=== PATIENT | female | born 1990 | race African-American/Black ===

== ENCOUNTER 2022-05-18 15:32 | Inpatient (IN) | payer MEDICAID ==
[~2022-05-18] VITALS: Ht 139.7 cm; Wt 55.3 kg
[2022-05-18 20:15] VITALS: BP 118/78
--- NOTE | 2022-05-18 20:15 | NUR ---
ADMITTED A 31-YEAR-OLD FEMALE FROM [facility], ACCOMPANIED BY 3 AMBULATORY PERSONNEL VIA [employer]. PATIENT IS OBTUNDED, NON VERBAL , ON VENT SETTINGS PRESCRIBED. NO SOB/DISTRESS NOTED. ON TELE MONITOR SHOWING ST WITH A HR OF 110'S. IV ACCESS ON LT WRIST #24, IO ON RT AND LT LEG ON SL. SKIN ASSESSMENT DONE, SKIN IS INTACT. PATIENT HAS NO BELONGINGS. ALL SAFETY MEASURES IMPLEMENTED, HOB ELEVATED. WILL CONTINUE TO MONITOR AND WILL CONTINUE PLAN OF CARE.
[2022-05-18] MEDS ORDERED: ACETAMINOPHEN 650 MG/20.3 ML UDC NG PRN (22:00)
[2022-05-18] MEDS ORDERED: LORAZEPAM INJ 2 MG/ML VIAL IVP PRN (22:00)
[2022-05-18] MEDS ORDERED: ONDANSETRON HCL/PF 4 MG/2 ML VIAL IVP PRN (22:00)
--- NOTE | 2022-05-18 22:10 | NUR ---
LAB AT BEDSIDE
--- NOTE | 2022-05-18 22:20 | NUR ---
MRSA SWAB COLLECTED AND SENT TO LAB.
--- NOTE | 2022-05-18 22:42 | NUR ---
LAB UNABLE TO COLLECT BLOOD. MIDLINE INSERTION REQUESTED.
[2022-05-19] VITALS: BP 118/78
[2022-05-19] MEDS ORDERED: ONDANSETRON HCL 4 MG/5 ML SOLUTION GT PRN
[2022-05-19] MEDS ORDERED: ACETAMINOPHEN 325 MG TABLET MC PRN
[2022-05-19] MEDS ORDERED: LORAZEPAM 1 MG TABLET PO PRN
[2022-05-19] MEDS ORDERED: MAGNESIUM HYDROXIDE 30 ML UDC GT PRN
[2022-05-19] MEDS ORDERED: VANCOMYCIN 1 GM in IV D5W 250ml IV ONE (02:00)
[2022-05-19] MEDS ORDERED: CEFEPIME 1 GM in IV D5W 50 ML IV SCH ×2 (02:00→22:00)
[2022-05-19] MEDS ORDERED: DEXT15DR6 OP (02:31)
[2022-05-19] MEDS ORDERED: METO1TAB25 PO (02:31)
[2022-05-19] MEDS ORDERED: DOCU-141 GT (02:31)
[2022-05-19] MEDS ORDERED: MAGN24002 PO (02:31)
[2022-05-19] MEDS ORDERED: MULT-213 GT (02:31)
[2022-05-19] MEDS ORDERED: PHEN100C4 GT (02:31)
[2022-05-19] MEDS ORDERED: POTA20TA83 PO (02:31)
[2022-05-19] MEDS ORDERED: LORA-259 PO (02:31)
[2022-05-19] MEDS ORDERED: PHEN20EL5 GT (02:31)
[2022-05-19] MEDS ORDERED: LEVE1000 GT (02:31)
[2022-05-19] MEDS ORDERED: IPRA3AMP23 IH (02:31)
[2022-05-19] MEDS ORDERED: CALC-1029 PO (02:31)
[2022-05-19] MEDS ORDERED: ACET650S26 GT (02:31)
[2022-05-19] MEDS ORDERED: ONDA4TAB5 GT (02:31)
[2022-05-19] MEDS ORDERED: FAMO-131 GT (02:31)
[2022-05-19] MEDS: IV NS 0.9% 1,000 ML IV PRN ×3 (02:57→16:28)
[2022-05-19] MEDS ORDERED: VANCOMYCIN 1 GM VIAL ONE (02:59)
[2022-05-19] MEDS ORDERED: IV NS 0.9% 500 ML IV ONE (03:00)
[2022-05-19] MEDS ORDERED: CEFEPIME 1 GM VIAL ONE (03:00)
[2022-05-19] MEDS ORDERED: LORAZEPAM 1 MG TABLET PO SCH (03:00)
[2022-05-19] MEDS ORDERED: Medication Not On Formulary EA (Ipratropium/Albuterol Sulfate (Duoneb 2.5-0.5 Mg/3 Ml So IH PRN (03:00)
[2022-05-19] MEDS ORDERED: ALBUTEROL FS 2.5 MG/0.5 ML VIAL.NEB NEB PRN (03:30)
[2022-05-19] MEDS ORDERED: IPRATROPIUM NEB FS 0.5 MG/2.5 ML AMPUL.NEB IH PRN (03:30)
--- NOTE | 2022-05-19 03:45 | NUR ---
IV access inserted on rt hand g#22. patent, intact and flushing well.
[2022-05-19 04:00] VITALS: BP 118/73
--- NOTE | 2022-05-19 04:06 | NUR ---
Vancomycin 1 gm stock med administered via rt hand IV access.
[2022-05-19] MEDS ORDERED: LEVETIRACETAM (500MG) 500 MG/5 ML VIAL IV ONE (04:14)
[2022-05-19] MEDS: LEVETIRACETAM (500MG) 1,000 MG in IV NS 0.9% 100 ML IV SCH ×2 (04:15→15:53)
[2022-05-19] MEDS: PHENYTOIN EXTENDED RELEASE 100 MG CAPSULE PO SCH ×3 (04:16→21:15)
[2022-05-19] MEDS ORDERED: POLYVINYL ALCOHOL 15 ML BOTTLE EACHEYE SCH (05:00)
[2022-05-19] MEDS ORDERED: PHENYTOIN SUSP UDC 100 MG/4 ML UDC GT SCH (05:00)
[2022-05-19] MEDS ORDERED: PHENOBARBITAL 20 MG/5 ML UDC PO SCH (05:00)
[2022-05-19] MEDS ORDERED: PHENOBARBITAL 30 MG TABLET ONE (05:27)
--- NOTE | 2022-05-19 06:41 | NUR ---
PATIENT IS OBTUNDED, NON VERBAL , ON VENT SETTINGS PRESCRIBED. NO SOB/DISTRESS NOTED. ON TELE MONITOR SHOWING ST WITH A HR OF 107. IV ACCESS ON RT HAND G#22, LT WRIST #24, IO ON RT AND LT LEG ON SL. ALL SAFETY MEASURES MAINTAINED. HOB ELEVATED. WILL ENDORSE TO NEXT NURSE ON DUTY FOR CONTINUITY OF CARE.
--- NOTE | 2022-05-19 07:09 | NUR ---
Unable to administer Phenobarbital 20mg, dose not available in the unit and in other units. Informed pharmacy, they will bring the ordered dose when available. Will endorse to morning shift nurse.
--- NOTE | 2022-05-19 07:12 | NUR ---
SEAFOOD SPECIALIST OPENING NOTES: RECEIVED PATIENT IN BED, OBTUNDED, NON VERBAL. ON MECHANICAL VENT OF SHILEY # 4 WITH VENT SETTINGS FOLLOWS: AC 16, TV 400, FIO2 30% AND PEEP 5 WITH CONTINUOUS OXYGEN SATURATION MONITORING OF 100%. NO RESPIRATORY DISTRESS NOTED. ON ST PER TELE MONITOR SHOWING A HR OF 103. IV ACCESS ON RT HAND G#22, LT WRIST #24, IO ON RT AND LT LEG ON SL. ALVARADO CATH IN PLACE. ALL SAFETY MEASURES IN PLACE BED LOCKED AND IN LOWEST POSITION WITH BED ALARM ON. HOB KEPT ELEVATED. WILL CONTINUE TO MONITOR PATIENT THROUGHOUT SHIFT.
[2022-05-19 08:00] VITALS: BP 121/84
[2022-05-19] MEDS ORDERED: MAGN400O6 GT (08:43)
[2022-05-19] MEDS ORDERED: POTA20PA3 GT (08:43)
[2022-05-19] MEDS ORDERED: BISA10SU11 RC (08:43)
[2022-05-19] MEDS ORDERED: LORA2VIA11 IM (08:43)
[2022-05-19] MEDS ORDERED: CALC1TAB30 GT (08:43)
[2022-05-19] MEDS ORDERED: METO25TA20 GT (08:43)
[2022-05-19] MEDS ORDERED: [UNRECOGNIZED DRUG - CODE] GT (08:43)
[2022-05-19] MEDS ORDERED: POLY15DR40 EACHEYE (08:43)
[2022-05-19] MEDS ORDERED: PANTOPRAZOLE 40 MG VIAL IV SCH (09:00)
[2022-05-19] MEDS ORDERED: LORAZEPAM INJ 2 MG/ML VIAL IVP PRN (09:00)
[2022-05-19] MEDS ORDERED: METOPROLOL TARTRATE 50 MG TABLET GT SCH (09:00)
[2022-05-19] MEDS ORDERED: MULTIPLE VIT (LYCOPENE/FA/MV,CA,IRON,MIN/LUT)1 TAB GT SCH (09:00)
[2022-05-19] MEDS ORDERED: LEVETIRACETAM SOL (5 ML) 100 MG/ML UDC GT SCH (09:00)
[2022-05-19] MEDS ORDERED: CALCIUM CARBONATE 500 MG TAB.CHEW GT SCH (09:00)
[2022-05-19] MEDS ORDERED: DOCUSATE SODIUM LIQ 100 MG/10 ML UDC GT SCH (09:00)
[2022-05-19] MEDS ORDERED: PHENOBARBITAL 60 MG/15 ML UDC GT SCH (09:00)
[2022-05-19] MEDS ORDERED: POTASSIUM CHLORIDE 20 MEQ TAB.PRT.SR PO SCH (09:00)
--- NOTE | 2022-05-19 09:00 | NUR ---
MIDLINE NURSE CAME TO INSERT IV ON PATIENT'S LEFT UPPER ARM # 18.
--- NOTE | 2022-05-19 09:20 | NUR ---
DOCTOR CAME TO REMOVE IO ON BILATERAL LEGS, MINIMAL BLEEDING NOTED
[2022-05-19] MEDS: POTASSIUM CHLORIDE 20 MEQ TAB.PRT.SR PO SCH (09:36)
[2022-05-19] MEDS: DOCUSATE SODIUM 100 MG CAPSULE PO SCH ×2 (09:36→21:15)
[2022-05-19] MEDS: MULTIVIT W/MINERALS 1 TAB TABLET PO SCH (09:37)
--- NOTE | 2022-05-19 10:28 | NUR ---
WOUND CARE CONSULT: PT PRESENTS WITH SOME DISCOLORATION OF SKIN ON FEET, PRESENT ON ADMISSION. RECOMMENDATIONS MADE FOR SKIN PROTECTION. DISCUSSED WITH NURSING STAFF. PT IS INCONTINENT OF STOOL. ALVARADO CATH NOTED. MD IN AGREEMENT WITH PLAN OF CARE.
[2022-05-19] MEDS: Z GUARD REMEDY 4 OZ OINT TP SCH (10:30)
[2022-05-19] MEDS ORDERED: Z GUARD REMEDY 4 OZ OINT TP PRN (10:30)
[2022-05-19 12:00] VITALS: BP 111/67
[2022-05-19] MEDS ORDERED: PHENOBARBITAL 60 MG/15 ML UDC PO SCH (13:00)
[2022-05-19] MEDS ORDERED: PHENOBARBITAL 60 MG TABLET PO SCH (14:30)
[2022-05-19] MEDS: PHENOBARBITAL 30 MG TABLET PO SCH (14:55)
[2022-05-19] MEDS ORDERED: JEVITY 1.2 CAL 1,000 ML BOTTLE GT PRN (15:00)
[2022-05-19 15:25] LABS: BASOPHILS % (AUTO) 0.2 % (0.0-2.0); EOSINOPHILS % (AUTO) 0.2 % (0.0-6.0); HEMATOCRIT 33 % (33-45); HEMOGLOBIN 10.3 g/dL (11.5-14.8); LYMPHOCYTES # (AUTO) 0.8 K/uL (0.8-4.8); LYMPHOCYTES % (AUTO) 15.2 % (20.0-44.0); MEAN CORPUSCULAR HGB CONC 31 g/dl (31.0-36.0); MEAN CORPUSCULAR VOLUME 83 fL (82-100); MONOCYTES # (AUTO) 0.7 K/uL (0.1-1.30); MONOCYTES % (AUTO) 13.4 % (2.0-12.0); PLATELET COUNT (AUTO) 195 K/uL (150-450); RED BLOOD CELL COUNT(AUTO) 3.98 MIL/uL (4.0-5.2); WHITE BLOOD COUNT (AUTO) 5.6 K/uL (4.3-11.0)
[2022-05-19 15:54] LABS: ALBUMIN 2.4 g/dL (3.4-5.0); BILIRUBIN,TOTAL 0.3 mg/dL (0.2-1.0); CALCIUM, SERUM 7.9 mg/dL (8.5-10.1); CREATININE 0.4 mg/dL (0.6-1.3); MAGNESIUM 2.1 mg/dL (1.8-2.4); PHOSPHORUS 2.7 mg/dL (2.5-4.9); POTASSIUM 3.3 mmol/L (3.5-5.1); TOTAL PROTEIN, SERUM 7.8 g/dL (6.4-8.2)
[2022-05-19 16:00] VITALS: BP 121/74
[2022-05-19 16:26] LABS: PHENYTOIN (DILANTIN) 4.2 ug/ml (10.0-20.0)
[2022-05-19] MEDS ORDERED: PHENYTOIN SODIUM IV 100 MG/2ML VIAL IV ONE (17:30)
[2022-05-19] MEDS ORDERED: phenytoin SODIUM IV 500 MG in IV NS 0.9% 50 ML IV ONE (18:00)
--- NOTE | 2022-05-19 18:26 | NUR ---
SPOKE WITH MIGUE AT THE PHARMACY AND SAID IT'S OK TO GIVE VANCO ORDERED.
[2022-05-19] MEDS: VANCOMYCIN 0.75 GM in IV D5W 250 ML IV SCH (18:28)
--- NOTE | 2022-05-19 18:55 | NUR ---
WORLDWIDE CHIEF CREATIVE OFFICER CLOSING NOTES: PATIENT IN BED, OBTUNDED, NON VERBAL. ON MECHANICAL VENT WITH VENT SETTINGS ORDERED. ON CONTINUOUS OXYGEN SATURATION MONITORING OF 100%. NO RESPIRATORY DISTRESS NOTED THROUGHOUT SHIFT. NO SEIZURE EPISODE NOTED THE ENTIRE SHIFT. ON ST PER TELE MONITOR SHOWING A HR OF 105. IV ACCESS ON LEFT UPPER ARM MIDLINE IS IN PLACE, INTACT, FLUSHES WELL WITH NO S/S INFILTRATION NOTED. ALL SAFETY MEASURES IMPLEMENTED. BED LOCKED AND IN LOWEST POSITION WITH BED ALARM ON. HOB KEPT ELEVATED. WILL ENDORSE TO INCOMING NURSE FOR CONTINUITY OF CARE.
--- NOTE | 2022-05-19 19:30 | NUR ---
PT RECEIVED AWAKE. OBTUNDED, NON VERBAL. ON MECHANICAL VENT WITH VENT SETTINGS ORDERED. NO RESPIRATORY DISTRESS NOTED. ON TELE MONITOR SHOWING ST WITH A HR OF 105. IV ACCESS ON LEFT UPPER ARM MIDLINE. ALL SAFETY MEASURES IN PLACE. WILL CONTINUE PLAN OF CARE.
[2022-05-19 20:00] VITALS: BP 113/66
[2022-05-19] MEDS: CEFEPIME 2 GM in IV D5W 100 ML IV SCH (20:07)
[2022-05-19] MEDS ORDERED: FAMOTIDINE (20 MG) 20 MG TABLET GT SCH (22:00)
[2022-05-19] MEDS ORDERED: FAMOTIDINE (20 MG) 20 MG TABLET PO SCH (22:00)
[2022-05-20] VITALS (7 sets, daily range): BP systolic 102–128; BP diastolic 65–80
[2022-05-20] MEDS: PHENOBARBITAL 30 MG TABLET PO SCH ×2 (02:02→14:48)
[2022-05-20] MEDS: LEVETIRACETAM (500MG) 1,000 MG in IV NS 0.9% 100 ML IV SCH (03:09)
--- NOTE | 2022-05-20 03:47 | NUR ---
PT HAD EPISODE OF MILD SEIZURE. ATIVAN 2MG IV PRN GIVEN NEEDED AND ORDERED. CHARGE NURSE INFORMED.
[2022-05-20] MEDS: CEFEPIME 2 GM in IV D5W 100 ML IV SCH ×3 (05:38→21:36)
[2022-05-20] MEDS: VANCOMYCIN 0.75 GM in IV D5W 250 ML IV SCH ×2 (06:19→18:31)
[2022-05-20] MEDS: IV NS 0.9% 1,000 ML IV PRN ×3 (06:26→22:25)
--- NOTE | 2022-05-20 07:30 | NUR ---
RN OPENING NOTE PT OBSERVED IN BED WITH HOB >35 DEGREES. PT IS ON MECHANICAL VENT WITH ALL PRESCRIBED SETTINGS TOLERATING WELL O2 SAT 100% NO SIGNS OF DISTRESS. PT IS OBTUNDED. TF @ 50ML/HR IV ACCESS L UA ML 18g INFUSING WITH NS @100ML/HR. BED IS LOCKED IN LOWEST POSITION ALL HOSPITAL SAFETY MEASURES ARE IN PLACE WILL CONTINUE TO MONITOR THIS SHIFT.
--- NOTE | 2022-05-20 08:10 | NUR ---
PT AWAKE. OBTUNDED, NON VERBAL. ON MECHANICAL VENT WITH VENT SETTINGS ORDERED. NO RESPIRATORY DISTRESS NOTED. ON TELE MONITOR SHOWING ST WITH A HR OF 103-110. IV ACCESS ON LEFT UPPER ARM MIDLINE INFUSING 0.9 NS AT 100ML/HR. ALL SAFETY MEASURES MAINTAINED. WILL ENDORSE TO NEXT SHIFT NURSE FOR CONTINUITY OF CARE.
[2022-05-20] MEDS ORDERED: PANTOPRAZOLE 40 MG/PACK PACK NG SCH (09:00)
[2022-05-20] MEDS: Z GUARD REMEDY 4 OZ OINT TP SCH (09:00)
[2022-05-20] MEDS: DOCUSATE SODIUM 100 MG CAPSULE PO SCH ×2 (10:36→21:36)
[2022-05-20] MEDS: POTASSIUM CHLORIDE 20 MEQ TAB.PRT.SR PO SCH (10:36)
[2022-05-20] MEDS: PHENYTOIN EXTENDED RELEASE 100 MG CAPSULE PO SCH ×2 (10:36→21:36)
[2022-05-20] MEDS: MULTIVIT W/MINERALS 1 TAB TABLET PO SCH (10:38)
--- NOTE | 2022-05-20 12:20 | NUR ---
REPORT GIVEN TO [place] FOREMAN. PT STABLE AT THIS TIME.
[2022-05-20 16:27] LABS: CALCIUM, SERUM 8.1 mg/dL (8.5-10.1); CREATININE 0.5 mg/dL (0.6-1.3); POTASSIUM 3.2 mmol/L (3.5-5.1)
--- NOTE | 2022-05-20 19:00 | NUR ---
NURSING INFORMATICS SPECIALIST CLOSING NOTE: OBTUNDED. TRACH AND VENT WORKING AT PRESCRIBED SETTINGS. LEFT UPPER ARM MID LINE PATENT WITH IVF ORDERED. NO S/S OF COMPLICATIONS. LEFT HAND ARTERIAL LINE WITH NO S/S OF COMPLICATIONS. ANNOUNCER SINUS TACHY 109. GT IN PLACE PATENT NO RESIDUAL. TOLERATED GT FORMULA WELL. ASPIRATION PRECAUTIONS MAINTAINED. ALVARADO CATHETER IN PLACE. MENSTRUAL CYCLE MINIMAL BLOOD NOTED. KEPT CLEAN AND COMFORTABLE. MODERATE ORAL CLEAR SECRETIONS, AND TRACH SECRETIONS SUCTIONED NEEDED. KEPT CLEAN AND DRY. TURNED AND REPOSITIONED. HOB ELEVATED. BILATERAL HALF SIDE RAILS UP X2. BED IN LOW POSITION, LOCKED, EXIT ALARM ON. CALL LIGHT IN REACH. KEPT CLEAN AND COMFORTABLE.
--- NOTE | 2022-05-20 19:30 | NUR ---
RN Opening Notes Received pt in bed with eyes open. Obtunded and nonverbal. On mechanical vent and tolerating well. No SOB noted. No s/sx of respiratory distress noted. IV Access in ISABEL midline #18G running NS @ 100 mL/hr. G-tube in place with Jevity @ 50 ml/hr. Safety precautions in place: bed in lowest, locked position, siderails upX2, and brakes on. Table and call light within reach. All needs met at this time.
[2022-05-20] MEDS ORDERED: LEVETIRACETAM (500MG) 1,000 MG in IV NS 0.9% 100 ML IV SCH ×4 (20:00)
[2022-05-20] MEDS: FAMOTIDINE (20 MG) 20 MG TABLET GT SCH (21:36)
[2022-05-21] VITALS: BP 118/70
[2022-05-21] MEDS: PHENOBARBITAL 30 MG TABLET GT SCH ×2 (01:43→14:15)
[2022-05-21 04:00] VITALS: BP_SYST 105; BP_DIAS 50; BP_DIAS 52
[2022-05-21] MEDS: CEFEPIME 2 GM in IV D5W 100 ML IV SCH ×3 (05:22→20:34)
[2022-05-21] MEDS: VANCOMYCIN 0.75 GM in IV D5W 250 ML IV SCH ×3 (06:25→22:15)
--- NOTE | 2022-05-21 06:44 | NUR ---
RN Closing Notes Pt in bed with eyes open. Obtunded and nonverbal. On mechanical vent and tolerating well. No SOB noted. No s/sx of respiratory distress noted. IV Access in ISABEL midline #18G running NS @ 100 mL/hr. G-tube in place with Jevity @ 50 ml/hr. All orders carried out. All needs met. Pt kept clean and dry. Suctioned patient throughout night. Safety precautions in place: bed in lowest, locked position, siderails upX2, and brakes on. Table and call light within reach. Will endorse to oncoming shift for ROLANDO.
--- NOTE | 2022-05-21 07:40 | NUR ---
telephone triage nurse Opening Notes received pt in bed with eyes open. obtunded and nonverbal. On mechanical vent and tolerating well. No SOB noted. No s/sx of respiratory distress noted. IV Access in ISABEL midline #18G running NS @ 100 mL/hr. G-tube in place with Jevity @ 50 ml/hr.no residual volume noted. moreno cathether in place. yellow color draining to gravity. all Safety precautions in place: bed in lowest, locked position, siderails upX2, and brakes on. bedside Table, bed alarm, call light within reach.
[2022-05-21 08:00] VITALS: BP 130/77
[2022-05-21 08:27] LABS: BASOPHILS % (AUTO) 0.3 % (0.0-2.0); EOSINOPHILS % (AUTO) 1.7 % (0.0-6.0); HEMATOCRIT 31 % (33-45); HEMOGLOBIN 9.9 g/dL (11.5-14.8); LYMPHOCYTES # (AUTO) 0.9 K/uL (0.8-4.8); LYMPHOCYTES % (AUTO) 16.8 % (20.0-44.0); MEAN CORPUSCULAR HGB CONC 32 g/dl (31.0-36.0); MEAN CORPUSCULAR VOLUME 84 fL (82-100); MONOCYTES # (AUTO) 0.7 K/uL (0.1-1.30); MONOCYTES % (AUTO) 13.1 % (2.0-12.0); NEUTROPHILS # (AUTO) 3.7 K/uL (1.8-8.9); NEUTROPHILS % (AUTO) 68.1 % (43.0-81.0); PLATELET COUNT (AUTO) 83 K/uL (150-450); RED BLOOD CELL COUNT(AUTO) 3.74 MIL/uL (4.0-5.2); WHITE BLOOD COUNT (AUTO) 5.5 K/uL (4.3-11.0)
[2022-05-21] MEDS ORDERED: POTASSIUM CHLORIDE 20 MEQ POWDER PACKET GT SCH (09:00)
[2022-05-21 09:07] LABS: CALCIUM, SERUM 7.6 mg/dL (8.5-10.1); CREATININE 0.3 mg/dL (0.6-1.3); MAGNESIUM 1.9 mg/dL (1.8-2.4); PHOSPHORUS 2.8 mg/dL (2.5-4.9); POTASSIUM 3.5 mmol/L (3.5-5.1)
--- NOTE | 2022-05-21 09:25 | NUR ---
RN, please call Radiology when your patient is ready for CT Chest exam. We've been trying to do this for a few days now. please call when ready.
[2022-05-21 10:06] LABS: BAND % (MANUAL) 1 % (0.0-5.0); EOSINOPHILS % (MANUAL) 1 % (0-4); LYMPHOCYTES % (MANUAL) 26 % (16-48); MONOCYTES % (MANUAL) 10 % (0-11.0); NEUTROPHILS % (MANUAL) 62 (42-76)
[2022-05-21] MEDS: Z GUARD REMEDY 4 OZ OINT TP SCH (11:14)
[2022-05-21] MEDS: PANTOPRAZOLE 40 MG/PACK PACK GT SCH (11:31)
[2022-05-21] MEDS: MULTIVIT W/MINERALS 1 TAB TABLET GT SCH (11:31)
[2022-05-21] MEDS: DOCUSATE SODIUM LIQ 100 MG/10 ML UDC GT SCH ×2 (11:31→20:31)
[2022-05-21] MEDS: LEVETIRACETAM SOL (5 ML) 100 MG/ML UDC GT SCH ×2 (11:31→20:32)
[2022-05-21 12:00] VITALS: BP 127/84
[2022-05-21] MEDS ORDERED: LORAZEPAM INJ 2 MG/ML VIAL IV PRN (14:30)
[2022-05-21] MEDS ORDERED: PHENYTOIN SODIUM IV 100 MG/2ML VIAL IV ONE (15:00)
[2022-05-21 16:00] VITALS: BP 133/87
[2022-05-21] MEDS: IV NS 0.9% 1,000 ML IV PRN (18:14)
--- NOTE | 2022-05-21 19:46 | NUR ---
teletype adjuster closing note pt awake, obtunded and nonverbal. pt on mechanical vent and tolerating well. no signs of pain or discomfort at this time.pt iv access on left upper arm midline. iv intact, patent and flushing well. pt has gtube. no residual volume noted. moreno cathether in place. yellow color draining to gravity. all safety measures in place. call light within reach.bed locked at lowest position.pt on seizure precautions. side rails up x2. bed alarm on. endorsed to night time babysitter rn.
[2022-05-21 20:00] VITALS: BP 111/75
[2022-05-21] MEDS: PHENYTOIN SUSP UDC 100 MG/4 ML UDC GT SCH (20:32)
[2022-05-21] MEDS: FAMOTIDINE (20 MG) 20 MG TABLET GT SCH (22:15)
[2022-05-22] VITALS: BP 113/65
--- NOTE | 2022-05-22 02:00 | NUR ---
feeding off as ordered to be restarted at 06:00AM
[2022-05-22] MEDS: PHENOBARBITAL 30 MG TABLET GT SCH ×2 (02:24→14:25)
--- NOTE | 2022-05-22 03:14 | NUR ---
noted on the pixis 05/21 at 1900 it shows to give the Phenobarbital 60 Mg at 1999, ordered q 12 hours last dose 1400 05/21 called the Pharmacy and made them aware that the EMR on the computer states 0230 but the pixis shows 1999 informed him I will take the med out now because if I wait until 02:30 the pixis won't despense the medicine needed he said "okay" and that on his computer it show to be given 0:230 which is correct medication Phenobarbital given at 02:30 05/22.
[2022-05-22 04:00] VITALS: BP 100/66
[2022-05-22] MEDS: CEFEPIME 2 GM in IV D5W 100 ML IV SCH ×2 (04:34→12:33)
[2022-05-22] MEDS: IV NS 0.9% 1,000 ML IV PRN (05:41)
--- NOTE | 2022-05-22 06:00 | NUR ---
closing notes: eyes open not focusing asp this 12 hours orally suctioned freq d/t foam in the mouth max assist to be turned and repositioned and cleaned mid line left upper rm unable to draw blood VANCO TROUGH to be done prior this 0600 am dose pending feeding off at 2 AM and restarted 6AM GT feeding 75 ml hr and tolerating no residuals no seizure activity this 12 hours
--- NOTE | 2022-05-22 06:44 | NUR ---
Vancomyyson due at 06:00 AM not given as yet waiting for the 05:00 VANCOMYSON trough level done this AM will give report to the on coming shift and make them aware
--- NOTE | 2022-05-22 07:29 | NUR ---
telecommunications technician Opening Notes received pt in bed with eyes open. obtunded and nonverbal. On mechanical vent and tolerating well. No SOB noted. No s/sx of respiratory distress noted. IV Access in ISABEL midline #18G running NS @ 100 mL/hr. G-tube in place with Jevity @ 50 ml/hr.no residual volume noted. moreno cathether in place. yellow color draining to gravity. all Safety precautions in place: bed in lowest, locked position, siderails upX2, and brakes on. bedside Table, bed alarm on, call light within reach.
[2022-05-22 08:00] VITALS: BP 100/66
[2022-05-22] MEDS ORDERED: POTASSIUM CHLORIDE 20 MEQ POWDER PACKET GT SCH (09:00)
[2022-05-22] MEDS: PANTOPRAZOLE 40 MG/PACK PACK GT SCH (09:33)
[2022-05-22] MEDS: DOCUSATE SODIUM LIQ 100 MG/10 ML UDC GT SCH (09:33)
[2022-05-22] MEDS: MULTIVIT W/MINERALS 1 TAB TABLET GT SCH (09:33)
[2022-05-22] MEDS: LEVETIRACETAM SOL (5 ML) 100 MG/ML UDC GT SCH (09:33)
[2022-05-22] MEDS: Z GUARD REMEDY 4 OZ OINT TP SCH (09:33)
[2022-05-22 12:00] VITALS: BP 114/73
--- NOTE | 2022-05-22 12:11 | NUR ---
RN note notified roberto redmond that pt is on dilantin suspension 200 mg/8ml and dilantin phenyotin extended release 100 mg 1 capsule and if the capsule can be switched to suspension form Addendum: 05/22/22 at 1350 by LIZZIE OSPINA RN roberto said okay for it to be changed to suspension form. pharmacy aware
[2022-05-22] MEDS: PHENYTOIN SUSP UDC 100 MG/4 ML UDC GT SCH (12:35)
[2022-05-22] MEDS ORDERED: PHENYTOIN EXTENDED RELEASE 100 MG CAPSULE PO SCH (13:00)
[2022-05-22] MEDS ORDERED: PHENYTOIN SUSP UDC 100 MG/4 ML UDC GT SCH (14:00)
[2022-05-22 15:06] LABS: BASOPHILS % (AUTO) 0.6 % (0.0-2.0); EOSINOPHILS % (AUTO) 2.3 % (0.0-6.0); HEMATOCRIT 32 % (33-45); HEMOGLOBIN 9.9 g/dL (11.5-14.8); LYMPHOCYTES % (AUTO) 19.5 % (20.0-44.0); MEAN CORPUSCULAR HGB CONC 31 g/dl (31.0-36.0); MEAN CORPUSCULAR VOLUME 83 fL (82-100); MONOCYTES # (AUTO) 0.8 K/uL (0.1-1.30); MONOCYTES % (AUTO) 15.4 % (2.0-12.0); NEUTROPHILS # (AUTO) 3.3 K/uL (1.8-8.9); NEUTROPHILS % (AUTO) 62.2 % (43.0-81.0); PLATELET COUNT (AUTO) 200 K/uL (150-450); RED BLOOD CELL COUNT(AUTO) 3.83 MIL/uL (4.0-5.2); WHITE BLOOD COUNT (AUTO) 5.2 K/uL (4.3-11.0)
--- NOTE | 2022-05-22 15:20 | NUR ---
rn note gave report to Wilton High RN at [facility].
--- NOTE | 2022-05-22 15:25 | NUR ---
rn note Wilton web content & social media manager asked to keep in midline due to pt being hard stick and keep moreno cathether.
[2022-05-22 15:27] LABS: CALCIUM, SERUM 8.1 mg/dL (8.5-10.1); CREATININE 0.4 mg/dL (0.6-1.3); PHOSPHORUS 2.9 mg/dL (2.5-4.9); POTASSIUM 4.2 mmol/L (3.5-5.1)
[2022-05-22] MEDS ORDERED: PHEN125O9 GT ×2 (15:53)
[2022-05-22] MEDS ORDERED: CEFE2PIG2 IV (15:53)
[2022-05-22] MEDS ORDERED: PHEN30TA40 GT (15:53)
[2022-05-22 16:00] VITALS: BP 110/60
[2022-05-22 16:30] LABS: EOSINOPHILS % (MANUAL) 2 % (0-4); LYMPHOCYTES % (MANUAL) 24 % (16-48); MONOCYTES % (MANUAL) 6 % (0-11.0); NEUTROPHILS % (MANUAL) 68 (42-76)
--- NOTE | 2022-05-22 19:05 | NUR ---
BULB FILLER OPENING NOTE RECEIVED PT IN BED, OBTUNDED, ON MV, TOLERATING WELL. NO SOB/DISTRESS NOTED. IV ACCESS ON ISABEL ML #18G RUNNING NS @ 100 mL/hr. GTF RUNNING JEVITY 1.2 @ 50 ML/HR. F/C IN PLACE, INTACT AND PATENT, DRAINING CLEAR YELLOW URINE. SAFETY MEASURES IN PLACE: SIDE RAILS UP X3, BED LOCKED AND IN LOWEST POSITION.
--- NOTE | 2022-05-22 19:46 | NUR ---
television announcer closing Notes pt in bed with eyes open. obtunded and nonverbal. On mechanical vent and tolerating well. No SOB noted. No s/sx of respiratory distress noted. IV Access in ISABEL midline #18G running NS @ 100 mL/hr. G-tube in place with Jevity @ 50 ml/hr.no residual volume noted. moreno cathether in place. yellow color draining to gravity. all Safety precautions in place: bed in lowest, locked position, siderails upX2, and brakes on. bedside Table, bed alarm on, call light within reach. endorsed to operational meteorologist rn for contuity of care
--- NOTE | 2022-05-22 20:25 | NUR ---
DISCHARGE NOTES PATIENT PICKED UP BY AMBULANCE TO BE TRANSPORTED TO ALL [facility]. REPORT AND DISCHARGE PACKET GIVEN. PT IN BED, OBTUNDED, ON MV, NO SOB/DISTRESS NOTED. IV ACCESS ON ISABEL ML #18G. G-TUBE IN PLACE, FLUSHES WELL. F/C IN PLACE, INTACT AND PATENT. SAFETY MEASURES MAINTAINED.
== END 2022-05-22 21:01 | DRG 720 ==
LOC: TELE1 20:12
PROVIDERS: ADMIT Registered Nurse; ATTEND Nurse Practitioner Acute Care
PROC: 5A1945Z Respiratory Ventilation, 24-96 Consecutive Hours (ICD-10-PCS; principal; 2022-05-18)
PROC: 05HC33Z Insertion of Infusion Device into Left Basilic Vein, Percutaneous Approach (ICD-10-PCS; 2022-05-19)
DX: A41.9 Sepsis, unspecified organism (principal); J69.0 Pneumonitis due to inhalation of food and vomit; G93.49 Other encephalopathy; J15.6 Pneumonia due to other Gram-negative bacteria; J90 Pleural effusion, not elsewhere classified; Z99.11 Dependence on respirator [ventilator] status; Z93.0 Tracheostomy status; J96.10 Chronic respiratory failure, unspecified whether with hypoxia or hypercapnia; R13.10 Dysphagia, unspecified; Z93.1 Gastrostomy status; G40.909 Epilepsy, unspecified, not intractable, without status epilepticus; E87.5 Hyperkalemia; G80.9 Cerebral palsy, unspecified; Y95 Nosocomial condition; R65.20 Severe sepsis without septic shock; J98.11 Atelectasis; Z79.51 Long term (current) use of inhaled steroids; Z79.899 Other long term (current) drug therapy
CPT/HCPCS: 31720; 36410; 36415; 70450-TC; 71045-TC; 71250-TC; 76604-TC; 80048-TC; 80053-TC; 80184; 80185-TC; 80202-TC; 82040-TC; 83735-TC; 84100-TC; 85025-TC; 85730-TC; 87040-TC; 87081-TC; 94002-TC; 94003-TC; 94760-TC; 94762-TC; 94799-TC; 95819-TC; A4223; A6403; C9113; G0378; J0692; J1165; J1953; J2060; J3370; J3490; J7030; J7040; J7050; J7060